=== PATIENT | female | born 1975 | race Two or more races ===

== ENCOUNTER 2017-03-29 23:41 | Emergency (ER) | payer SELFPAY ==
--- NOTE | 2017-03-30 00:35 | ED Physician Chart ---
Chief Complaint/HPI - Patient Information Date Seen:: 03/29/17 Time Seen:: 23:55 Chief Complaint:: food caught the throat History of Present Illness:: THIS IS A 41 YO FEMALE WHO STATES THAT SHE HAS A PIECE OF WATER [place] STUCK IN HER THROAT. SHE STATES SHE HAS RECENTLY GOT SOME CHICKEN STUCK IN HER THROAT ALSO. SHE ALSO THINKS THAT SHE BEEN HAVING GETTING HER FOOD TO GO DOWN. Allergies:: Allergies Allergy/AdvReac Type Severity Reaction Status Date / Time No Known Allergies Allergy Verified 03/29/17 23:48 Vitals:: Vital Signs - 8 hr 03/29/17 23:45 Temp 97.7 F HR 78 RR 20 BP 128/73 O2 Sat % 100 Historian:: Patient Review:: Nurse's Note Reviewed Review of Systems - Review of Systems General/Constitutional: No fever, No chills, No weight loss, No weakness, No diaphoresis, No edema, No loss of appetite Skin: No skin lesions, No rash, No bruising Head: No headache, No light-headedness Eyes: No loss of vision, No pain, No diplopia ENT: No earache, No nasal drainage, No sore throat, No tinnitus, Other (FOOD LODGED IN HER THROAT.) Neck: No neck pain, No swelling, No thyromegaly, No stiffness, No mass noted Cardio Vascular: No chest pain, No palpitations, No PND, No orthopnea, No edema Pulmonary: No SOB, No cough, No sputum, No wheezing GI: No nausea, No vomiting, No diarrhea, No pain, No melena, No hematochezia, No constipation, No hematemesis G/U: No dysuria, No frequency, No hematuria Musculoskeletal: No bone or joint pain, No back pain, No muscle pain Endocrine: No polyuria, No polydipsia Psychiatric: No prior psych history, No depression, No anxiety, No suicidal ideation Hematopoietic: No bruising, No lymphadenopathy Allergic/Immuno: No urticaria, No angioedema Neurological: No syncope, No focal symptoms, No weakness, No paresthesia, No headache, No seizure, No dizziness, No confusion, No vertigo Past Medical History - Past Medical History Obtainable: Yes Past Medical History: DM Family History: None Social History: Non Smoker, No Alcohol, No Drug Use Surgical History: None Psychiatricy History: None Medication: Reviewed Family Medical History - Family Member Mother History Unknown: Yes Ethnicity: Hx Family Cancer: Yes (BREAST) Physical Exam - Physical Examination General/Constitutional: Awake, Well-developed, well-nourished, Alert, No distress, GCS 15, Non-toxic appearing, Ambulatory Head: Atraumatic Eyes: Lids, conjuctiva normal, PERRL, EOMI Skin: Nl inspection, No rash, No skin lesions, No ecchymosis, Well hydrated, No lymphadenopathy ENMT: External ears, nose nl, Nasal exam nl, Lips, teeth, gums nl Neck: Nontender, Full ROM w/o pain, No JVD, No nuchal rigidity, No bruit, No mass, No stridor Respiratory: Nl effort/Exclusion, Clear to Auscultation, No Wheeze/Rhonchi/Rales Cardio Vascular: RRR, No murmur, gallop, rubs, NL S1 S2 GI: No tenderness/rebounding/guarding, No organomegaly, No hernia, Normal BS's, Nondistended, No mass/bruits, No McBurney tenderness : No CVA tenderness Extremities: No tenderness or effusion, Full ROM, normal strength in all extremities, No edema, Normal digits & nails Neuro/Psych: Alert/oriented, DTR's symmetric, Normal sensory exam, Normal motor strength, Judgement/insight normal, Mood normal, Normal gait, No focal deficits Misc: normal gait, Normal back, No paraspinal tenderness Labs/Radiology/EKG Results - Radiology Results Results: SOFT TISSUE OF THE NECK X-RAY = NEG FOR FB ED Septic Shock - . Is Septic Shock (SBP<90, OR Lactate>4 mmol\L) present?: No - <6hrs of presentation: Vital Signs: Vital Signs - 8 hr 03/29/17 23:45 Temp 97.7 F HR 78 RR 20 BP 128/73 O2 Sat % 100 Reassessment (Disposition) - Reassessment Reassessment Condition:: Unchanged - Diagnosis Diagnosis:: FB BODY IN THE THROAT - Aftercare/Follow up Instructions Aftercare/Follow-Up Instructions:: Counseled pt regarding lab results/diagnosis & need follow up, Refer to Discharge Instructions, Counseled pt & family regarding lab results/diagnosis & need follow up - Patient Disposition Discharge/Transfer:: Home Condition at Disposition:: Unchanged ED Discharge Plan - Patient Disposition Admit/Discharge/Transfer: PT DISCHARGED HOME Condition at Disposition: Unchanged Additional Instructions: SEE AN ENT SPECIALIST IN THE AM FOR A THROAT EVALUATION.
--- NOTE | 2017-03-30 11:12 | Diagnostic Imaging Report ---
Soft tissues of the neck (2 views) HISTORY: Pain, foreign body No abnormalities are seen in the region of the epiglottis, valleculae, or pyriform sinuses. The prevertebral soft tissues appear normal. No radiopaque foreign bodies identified. IMPRESSION: Negative examination. No radiopaque foreign bodies identified.
== END 2017-03-30 00:55 | disposition home or self-care (01) ==
LOC: ER 23:41
DX: T17.228A Food in pharynx causing other injury, initial encounter (principal); E11.9 Type 2 diabetes mellitus without complications; X58.XXXA Exposure to other specified factors, initial encounter; Y93.89 Activity, other specified; Y92.89 Other specified places as the place of occurrence of the external cause; Y99.8 Other external cause status
CPT/HCPCS: 70360-TC; Z7502